=== PATIENT | female | born 1985 | race Caucasian/White ===

== ENCOUNTER 2018-06-26 20:03 | Inpatient (IN) | payer MEDICAID ==
[2018-06-26] MEDS: LACTATED RINGER'S 1,000 ML IV ×2 (22:13→23:05)
[2018-06-26] MEDS: TERBUTALINE 1 MG/ML INJ SC (23:05)
[2018-06-27] MEDS ORDERED: METHYLERGONOVINE 0.2 MG INJ IM ×2 (01:00→07:30)
[2018-06-27] MEDS ORDERED: MISOPROSTOL 200 MCG TAB PR ×2 (01:00→07:30)
[2018-06-27] MEDS ORDERED: CARBOPROST 250 MCG INJ IM ×2 (01:00→07:30)
[2018-06-27] MEDS ORDERED: OXYTOCIN 30 UNITS/LR 500 ML IV ×3 (01:00→07:30)
[2018-06-27 01:05] LABS: ADD MAN DIFF? NO
[2018-06-27 01:08] LABS: BASOPHILS % 0.4 % (0.0-2.0); EOSINOPHILS # 0.1 10^3/ul (0.0-0.5); EOSINOPHILS % 0.7 % (0.0-7.0); HEMATOCRIT 33.4 % (37.0-47.0); HEMOGLOBIN 11.1 g/dl (12.0-16.0); LYMPHOCYTES # 2.8 10^3/ul (0.8-2.9); LYMPHOCYTES % 28.3 % (15.0-51.0); MEAN CORPUSCULAR HEMOGLOBIN 29.4 pg (29.0-33.0); MEAN CORPUSCULAR HGB CONC 33.2 g/dl (32.0-37.0); MEAN CORPUSCULAR VOLUME 88.6 fl (82.0-101.0); MONOCYTE # 0.5 10^3/ul (0.3-0.9); MONOCYTES % 5.4 % (0.0-11.0); NEUTROPHIL # 6.4 10^3/ul (1.6-7.5); PLATELET COUNT 247 10^3/UL (140-415); RED BLOOD COUNT 3.77 10^6/ul (4.20-5.40); RED CELL DISTRIBUTION WIDTH 13.3 % (11.5-14.5)
[2018-06-27 01:28] LABS: PARTIAL THROMBOPLASTIN TIME 26.1 Sec (23.0-35.0); PROTIME 12.3 Sec (11.9-14.9)
[2018-06-27 01:56] LABS: HEPATITIS B SURFACE ANTIGEN NEGATIVE (NEGATIVE)
[2018-06-27] MEDS: LACTATED RINGER'S 1,000 ML IV ×5 (02:56→19:00)
[2018-06-27] MEDS ORDERED: CEFAZOLIN 2 GM/50 ML (PMX) 50 ML IVPB (07:30)
[2018-06-27] MEDS: DEXAMETHASONE 4 MG/ML 1 ML INJ IM ×2 (10:53→22:39)
[2018-06-27] MEDS ORDERED: DEXAMETHASONE 10 MG/ML 1 ML INJ IM (11:00)
[2018-06-27 21:08] LABS: RAPID PLASMA REAGIN NONREACTIVE (NR)
[2018-06-28] MEDS: LACTATED RINGER'S 1,000 ML IV ×3 (01:08→17:02)
[2018-06-28] MEDS: DEXAMETHASONE 4 MG/ML 1 ML INJ IM ×2 (10:14→22:04)
== END 2018-06-28 22:50 | disposition home or self-care (01) | DRG 832 ==
LOC: OBT 20:03 → L-D 06-27 01:06 → OBT 06-27 00:30 → L-D 06-27 00:30 → PP1 06-27 18:15
PROVIDERS: Obstetrics & Gynecology
DX: O46.93 Antepartum hemorrhage, unspecified, third trimester (principal); O47.03 False labor before 37 completed weeks of gestation, third trimester; Z3A.36 36 weeks gestation of pregnancy
CPT/HCPCS: 36415; 76815; 76818; 85025; 85610; 85730; 86592; 86850; 86900; 86901; 87340; 96360; 96361; 96372

== ENCOUNTER 2018-06-29 08:02 | Inpatient (IN) | payer MEDICAID ==
[2018-06-29] MEDS ORDERED: LACTATED RINGER'S 1,000 ML IV (09:02)
[2018-06-29 09:15] LABS: ADD MAN DIFF? NO
[2018-06-29 09:17] LABS: WHITE BLOOD COUNT 11.6 10^3/ul (4.8-10.8)
[2018-06-29 09:17] LABS: BASOPHILS % 0.3 % (0.0-2.0); EOSINOPHILS % 0.3 % (0.0-7.0); HEMOGLOBIN 10.1 g/dl (12.0-16.0); LYMPHOCYTES # 1.8 10^3/ul (0.8-2.9); LYMPHOCYTES % 15.5 % (15.0-51.0); MEAN CORPUSCULAR HEMOGLOBIN 29.3 pg (29.0-33.0); MEAN CORPUSCULAR HGB CONC 32.6 g/dl (32.0-37.0); MEAN CORPUSCULAR VOLUME 89.9 fl (82.0-101.0); MEAN PLATELET VOLUME 10.4 fl (7.4-10.4); MONOCYTE # 0.6 10^3/ul (0.3-0.9); NEUTROPHIL # 8.9 10^3/ul (1.6-7.5); NEUTROPHILS % 76.1 % (39.0-77.0); PLATELET COUNT 241 10^3/UL (140-415); RED BLOOD COUNT 3.45 10^6/ul (4.20-5.40); RED CELL DISTRIBUTION WIDTH 13.5 % (11.5-14.5)
[2018-06-29] MEDS ORDERED: MISOPROSTOL 200 MCG TAB PR ×2 (09:30→11:30)
[2018-06-29] MEDS ORDERED: CARBOPROST 250 MCG INJ IM ×2 (09:30→11:30)
[2018-06-29] MEDS ORDERED: OXYTOCIN 30 UNITS/LR 500 ML IV ×2 (09:30→11:30)
[2018-06-29] MEDS ORDERED: CEFAZOLIN 2 GM/50 ML (PMX) 50 ML IVPB (09:30)
[2018-06-29] MEDS ORDERED: METHYLERGONOVINE 0.2 MG INJ IM (09:30)
[2018-06-29 09:37] LABS: INR 0.94; PROTIME 12.7 Sec (11.9-14.9)
[2018-06-29 09:38] LABS: PARTIAL THROMBOPLASTIN TIME 23.1 Sec (23.0-35.0)
[2018-06-29] MEDS ORDERED: HYDROmorphONE 0.5 MG/0.5 ML SYG IV ×4 (11:00→13:30)
[2018-06-29] MEDS ORDERED: KETOROLAC 30 MG INJ IV ×2 (11:00→13:30)
[2018-06-29] MEDS ORDERED: NALOXONE (0.4 MG/ML) INJ IV ×2 (11:00→13:30)
[2018-06-29] MEDS ORDERED: DIPHENHYDRAMINE 50 MG INJ IV ×2 (11:00→13:30)
[2018-06-29] MEDS ORDERED: ZOLPIDEM 5 MG TAB PO ×2 (11:00→13:30)
[2018-06-29] MEDS ORDERED: ONDANSETRON 4 MG INJ IV ×2 (11:00→13:30)
[2018-06-29] MEDS: OXYTOCIN 30 UNITS/LR 500 ML IV ×3 (11:10→15:30)
[2018-06-29] MEDS ORDERED: NACL 0.9% 3 ML SYG IV (11:30)
[2018-06-29] MEDS: IBUPROFEN 600 MG TAB PO (12:00)
[2018-06-29 12:18] LABS: ADD MAN DIFF? NO
[2018-06-29 12:22] LABS: WHITE BLOOD COUNT 12.3 10^3/ul (4.8-10.8)
[2018-06-29 12:22] LABS: BASOPHILS % 0.2 % (0.0-2.0); HEMATOCRIT 30.3 % (37.0-47.0); HEMOGLOBIN 9.9 g/dl (12.0-16.0); LYMPHOCYTES # 1.4 10^3/ul (0.8-2.9); LYMPHOCYTES % 11.7 % (15.0-51.0); MEAN CORPUSCULAR HEMOGLOBIN 28.7 pg (29.0-33.0); MEAN CORPUSCULAR HGB CONC 32.7 g/dl (32.0-37.0); MEAN CORPUSCULAR VOLUME 87.8 fl (82.0-101.0); MEAN PLATELET VOLUME 10.4 fl (7.4-10.4); MONOCYTE # 0.4 10^3/ul (0.3-0.9); MONOCYTES % 3.4 % (0.0-11.0); NEUTROPHIL # 10.2 10^3/ul (1.6-7.5); NEUTROPHILS % 82.7 % (39.0-77.0); PLATELET COUNT 223 10^3/UL (140-415); RED BLOOD COUNT 3.45 10^6/ul (4.20-5.40); RED CELL DISTRIBUTION WIDTH 13.6 % (11.5-14.5)
[2018-06-29] MEDS: KETOROLAC 30 MG INJ IV (12:36)
[2018-06-29 15:19] LABS: RAPID PLASMA REAGIN NONREACTIVE (NR)
[2018-06-29] MEDS: LACTATED RINGER'S 1,000 ML IV (16:47)
[2018-06-30] MEDS: LACTATED RINGER'S 1,000 ML IV ×2 (01:11→08:30)
[2018-06-30] MEDS: KETOROLAC 30 MG INJ IV (08:32)
[2018-06-30 12:18] LABS: ADD MAN DIFF? NO
[2018-06-30 12:20] LABS: BASOPHILS % 0.3 % (0.0-2.0); EOSINOPHILS % 0.1 % (0.0-7.0); HEMATOCRIT 30.3 % (37.0-47.0); LYMPHOCYTES # 3.5 10^3/ul (0.8-2.9); LYMPHOCYTES % 29.3 % (15.0-51.0); MEAN CORPUSCULAR HEMOGLOBIN 29.2 pg (29.0-33.0); MEAN CORPUSCULAR VOLUME 88.6 fl (82.0-101.0); MEAN PLATELET VOLUME 9.9 fl (7.4-10.4); MONOCYTE # 0.8 10^3/ul (0.3-0.9); MONOCYTES % 6.5 % (0.0-11.0); NEUTROPHIL # 7.5 10^3/ul (1.6-7.5); NEUTROPHILS % 62.3 % (39.0-77.0); PLATELET COUNT 250 10^3/UL (140-415); RED BLOOD COUNT 3.42 10^6/ul (4.20-5.40); RED CELL DISTRIBUTION WIDTH 13.5 % (11.5-14.5)
[2018-06-30] MEDS: IBUPROFEN 600 MG TAB PO ×3 (12:37→23:54)
[2018-07-01] MEDS: HYDROCODONE/APAP (5/325) TAB PO ×2 (01:57→08:58)
[2018-07-01] MEDS: IBUPROFEN 600 MG TAB PO ×3 (05:45→17:58)
[2018-07-01] MEDS: MAGNESIUM HYDROXIDE 30ML CUP PO (08:58)
[2018-07-01] MEDS: DOCUSATE SODIUM 100 MG CAP PO ×2 (08:58→21:29)
[2018-07-01] MEDS: LANOLIN HPA 1 PKT TOP (12:03)
[2018-07-01] MEDS: SILVER SULFADIAZINE 1% 25 GM CR TOP (22:41)
[2018-07-02] MEDS: IBUPROFEN 600 MG TAB PO ×3 (00:12→12:01)
[2018-07-02] MEDS: HYDROCODONE/APAP (5/325) TAB PO (03:31)
[2018-07-02] MEDS: DOCUSATE SODIUM 100 MG CAP PO (08:29)
[2018-07-02] MEDS: MAGNESIUM HYDROXIDE 30ML CUP PO (08:29)
[2018-07-02] MEDS: SILVER SULFADIAZINE 1% 25 GM CR TOP (09:00)
== END 2018-07-02 14:55 | disposition home or self-care (01) | DRG 788 ==
LOC: OBT 08:02 → L-D 08:03 → OBT 09:02 → L-D 09:08 → PP1 14:18
PROVIDERS: Obstetrics & Gynecology
PROC: 10D00Z1 Extraction of Products of Conception, Low, Open Approach (ICD-10-PCS; principal; 2018-06-29)
DX: O45.93 Premature separation of placenta, unspecified, third trimester (principal); O32.0XX0 Maternal care for unstable lie, not applicable or unspecified; O34.219 Maternal care for unspecified type scar from previous cesarean delivery; O99.214 Obesity complicating childbirth; E66.9 Obesity, unspecified; L98.9 Disorder of the skin and subcutaneous tissue, unspecified; Z3A.37 37 weeks gestation of pregnancy; Z37.0 Single live birth
CPT/HCPCS: 85025; 85610; 85730; 86592; 88307; 99464